=== PATIENT | female | born 1960 | race Caucasian/White ===

== ENCOUNTER → 2017-09-29 | Outpatient (CLI) | payer BC | LOC: M.NUC 09:48 | DX: C50.911 Malignant neoplasm of unspecified site of right female breast (principal); C79.51 Secondary malignant neoplasm of bone ==

== ENCOUNTER 2018-04-19 03:55 | Inpatient (IN) | payer BC ==
[~2018-04-19] VITALS: Ht 152.4 cm; Wt 61.0 kg
[2018-04-19] VITALS (39 sets, daily range): BP systolic 65–144; BP diastolic 32–80
--- NOTE | ~2018-04-19 | CON ---
[address] [address] CONSULTATION Name: CESAR ORTEGA Room: [address] IN .R.#: [id number] Admission: 04/19/18 Attend Phys: Norberto Wayne MD Discharge: Date of : 60 Report #: [id number] THIS REPORT FOR: //name// CC: Norberto Kirby DATE OF SERVICE: 04/19/2018 REASON FOR CONSULTATION: Metastatic breast cancer, respiratory failure. REQUESTING PHYSICIAN: Norberto Wayne MD HISTORY OF PRESENT ILLNESS: The patient is a pleasant 57-year-old woman with longstanding history of metastatic breast cancer, recently disease progressed rapidly and significantly. She has metastatic disease in liver, lung and bones. She was admitted to the hospital months ago with [facility] with worsening right pleural effusion and possible empyema. She was refusing IV antibiotics. Thoracic Surgery consult was requested. Pulmonary consult is requested. This was made to proceed with conservative management. This procedure was too aggressive in her condition. It was determined. She was relatively asymptomatic at that time. She was released from the hospital. She initiated chemotherapy with Abraxane. She received one month of chemotherapy. She was doing okay. Last time I saw her in the hospital, she was feeling a little bit better. She felt that her pain was getting better, although she tries to diminish her symptoms. Yesterday, she developed severe shortness of breath and was admitted to the hospital. She is intubated in the Intensive Care Unit. Oncology consult is requested. She is on Levophed and intubated to 40% oxygen O2. She is sedated. and son at bedside. PAST MEDICAL HISTORY: Significant for history of COPD, metastatic breast cancer. REVIEW OF SYSTEMS: Unable to obtain. 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 PHYSICAL EXAMINATION: GENERAL: Reveals thin woman, sedated, intubated. VITAL SIGNS: Blood pressure 101/48, heart rate 105, temperature 98.9, respirations 16. HEENT: Intubated. HEART: Normal S1, S2. LUNGS: Severe wheezing and prolonged expiration, diminished [place] [address] CONSULTATION Name: CESAR ORTEGA Room: [address]#: [id number] Admission: 04/19/18 Attend Phys: Norberto Wayne MD Discharge: Date of : 60 Report #: [id number] ABDOMEN: Soft. EXTREMITIES: No edema. LABORATORY DATA: CT of the chest reviewed, shows large right pleural fluid collection with chronic loculated pleural effusion. Empyema is felt less likely, but cannot be excluded, diffuse, has reduced sclerotic changes involving all visual ulcers, metastatic disease. White count 7.4, hemoglobin 8.2, platelets 126. Sodium 134, potassium 2.5, bilirubin 0.5, alkaline phosphatase 74. ASSESSMENT AND PLAN: Respiratory failure, probably multifactorial etiology, chronic obstructive pulmonary disease plus chronic loculated right pleural effusion, possible empyema. Agree with management. Empyema/loculated pleural effusion. Appreciate pulmonary input. Metastatic breast cancer, on Abraxane. Last Abraxane was given a week ago. By: 1523 Elise Rivera MD /nt
[2018-04-19 04:36] LABS: HEMATOCRIT 24.7 % (37.0-47.0); HEMOGLOBIN 8.2 gm/dL (12.0-15.0); MCH 27.1 pg (26.0-34.0); MCHC 33.4 g/dL (28.0-37.0); MCV 81.2 fL (80.0-100.0); MPV 7.7 fl. (7.2-11.1); NUCLEATED RBCS 4 /100WBC; PLATELET COUNT* 126 thou/uL (150-400); RBC 3.04 mil/uL (4.20-5.00); WBC 7.4 thou/uL (4.0-11.0)
[2018-04-19] MEDS ORDERED: OXYCONTIN15 MG PO (04:46)
[2018-04-19] MEDS ORDERED: ONDANSETRON ODT8 MG PO ×2 (04:46→04:52)
[2018-04-19] MEDS ORDERED: POTASSIUM20 PO (04:47)
[2018-04-19] MEDS ORDERED: SYNTHROID100 MC1 PO (04:47)
[2018-04-19 04:48] LABS: APTT 29.5 Seconds (25.0-31.3); INR 1.2; PROTIME 12.7 Seconds (9.20-11.50)
[2018-04-19] MEDS ORDERED: VITAMIN B-12500 MCG PO (04:48)
[2018-04-19] MEDS ORDERED: D-20002000 UNIT PO (04:48)
[2018-04-19] MEDS ORDERED: MAGIC MOUTHWASH SWISH&SPIT (04:48)
[2018-04-19 04:49] LABS: ANION GAP 9 mmol/L (7-16); BUN 10 mg/dL (7-18); CALCIUM 7.6 mg/dL (8.5-10.1); CHLORIDE 95 mmol/L (98-107); CO2 30 mmol/L (21-32); CREATININE 0.7 mg/dL (0.6-1.3); GLUCOSE 199 mg/dL (70-99); SODIUM 134 mmol/L (136-145)
[2018-04-19] MEDS ORDERED: NOVOLOG100 UNIT/1 SUBQ (04:50)
[2018-04-19] MEDS ORDERED: HYDROCODONE-AP1 EAC6 PO (04:50)
[2018-04-19] MEDS ORDERED: REGLAN 5 MG TAB5 MG PO (04:51)
[2018-04-19] MEDS ORDERED: MORPHINE SULFAT15 M4 PO (04:51)
[2018-04-19] MEDS ORDERED: PRILOSEC OTC20 MG PO (04:52)
[2018-04-19] MEDS ORDERED: CENTRUM SILVER1 EAC2 PO (04:52)
[2018-04-19] MEDS ORDERED: PROTONIX40 M1 PO (04:53)
[2018-04-19] MEDS ORDERED: COMPAZINE10 MG PO (04:53)
[2018-04-19] MEDS ORDERED: SIMVASTATIN40 MG PO (04:53)
[2018-04-19 04:58] LABS: POTASSIUM 2.5 mmol/L (3.5-5.1)
[2018-04-19 05:00] LABS: ALBUMIN 1.6 g/dL (3.4-5.0); ALKALINE PHOSPHATASE 74 U/L (46-116); NT-PRO BRAIN NAT PEPTIDE 862 pg/mL (<300); SGOT 38 U/L (15-37); SGPT 16 U/L (30-65); TOTAL BILIRUBIN 0.8 mg/dL (<0.1-1.0); TOTAL PROTEIN 4.8 g/dL (6.4-8.2); TROPONIN-I LEVEL <0.06 ng/mL (<0.06)
--- NOTE | 2018-04-19 06:41 | NUR ---
iv fluid blolus started per orders. iv potassium infusing for critical low potassium level. pt unable to take po meds at this time
--- NOTE | 2018-04-19 07:37 | NUR ---
0720 DR MATA TO BS.INTUBATION DISCUSSED WITH FAMILY AND PT. AGREE TO INTUBATE 0725 SUCCINYCHOLINE 100 MG ETOMIDATE 20 MG GIVEN VIA PORT 7.5 ET 24 CM AT LIP. POSITIVE COLOR CHANGE, VENT SETTINGS: R 16 TV 550 100% O2 WITH PEEP 5.TUBE SECURED WITH SECUREMENT DEVICE 0735 PROPOFOL 10/MCG/KG/MIN STARTED AT 3.4 ML/HR. WRIST RESTRAINTS APPLIED FOR LINE SAFETY 0738 TIME OUT FOR CENTRAL LINE PLACEMENT. PROPOFOL INCREASED TO 20 MCG/KG/MIN 0745 CENTRAL LINE PLACED TO RIGHT IJ BY DR MATA.
[2018-04-19 07:54] LABS: ABSOLUTE LYMPHOCYTES 2.1 thou/uL (0.8-5.3); ABSOLUTE MONOCYTES 0.4 thou/uL (0.0-1.2); ABSOLUTE NEUTROPHILS 4.9 thou/uL (1.6-8.1); MYELOCYTES 3 %; PLATELET ESTIMATE ADEQUATE
[2018-04-19 07:55] LABS: ANISOCYTOSIS 1+; POIKILOCYTOSIS 1+; POLYCHROMASIA 1+
[2018-04-19 08:53] LABS: HCO3 25.8 mmol/L (22.0-26.0); PCO2 36.4 mmHg (35.0-45.0); pH 7.469 (7.340-7.450)
[2018-04-19 08:54] LABS: PO2 347.8 mmHg (75.0-100.0)
--- NOTE | 2018-04-19 09:45 | NUR ---
PATIENT ARRIVED FROM ER AT 0945 SEDATED ON VENTILATOR. BILATERAL WRIST RESTRAINTS. SEDATED ON PROPOFOL. ON LEVOPHED AT 3 MCG/MIN. INCREASED TO 22 MCG/MIN FOR LOWER BLOOD PRESSURE WITH INCREASED SEDATION. PATIENT HAS METASTATIC BREAST CANCER WITH KNOWN LIVER, LUNG, AND BONE METS. SEES DR BURNS AT . RECORDS REQUESTED FROM AND [facility] WHERE SHE WAS IN THE PAST MONTH. PATIENT HAD SOA OVERNIGHT. HAS WORSENING EMPYEMA TO RIGHT LUNG. PREVIOUS RIGHT RADICAL MASTECTOMY NOTED. LIMB ALERT IN PLACE. FAMILY PRESENT AT THIS TIME. WILL CONTINUE WITH PLAN OF CARE.
--- NOTE | 2018-04-19 09:59 | EKG ---
[place] [address] ELECTROCARDIOGRAM REPORT Name: CESAR ORTEGA Room: [address] ADM IN .R.#: [id number] Admission: 04/19/18 Attend Phys: Norberto Wayne MD Discharge: Date of : 60 Report #: [id number] THIS REPORT FOR: //name// [facility] ED Test Date: 2018-04-19 Test Time: 04:55:16 Pat Name: CESAR LONDON Department: Room: [facility] Gender: F Vp Of Marketing: : 1960 Requested By: Ford Elder Order Number: [id number] MD: Jeronimo Campuzano Measurements Intervals [place] Rate: 130 P: 55 OR: 116 QRS: -7 QRSD: 136 T: 165 QT: 321 QTc: 472 Interpretive Statements Sinus tachycardia supraventricular premature complexes Left bundle branch block No previous ECG available for comparison Electronically Signed On 04-19-2018 9:58:59 HVAC MAINTENANCE TECHNICIAN by Jeronimo Campuzano [email or web address] <ELECTRONICALLY SIGNED> By: Jeronimo Campuzano MD, [facility] 04/19/18 0958 0455 0455 Jeronimo Campuzano MD, FACC /EPI
--- NOTE | 2018-04-19 17:36 | NUR ---
PATIENT SOMEWHAT PROGRESSING TOWARDS GOALS. REMAINS STABLE ON VENTILATOR. O2 98% ON FIO2 40%. RESPIRATIONS FROM 16-22 THIS SHIFT. SEDATED ON PROPOFOL. REMAINS ON LEVOPHED, TITRATED DOWN TO 10 MCG/MIN THIS SHIFT. HR LOWERED TO HIGH 90S LOW 100S. ART LINE PLACED BY ANESTHESIOLOGY THIS EVENING. DR BURNS SPOKE WITH FAMILY ABOUT PROGNOSIS. PATIENT REMAINS FULL CODE AT THIS TIME WITH ALL MEASURES PER . K+ CURRENTLY BEING REPLACED PER PROTOCOL. TURNED Q2H TO MAINTAIN FURTHER SKIN INTEGRITY WITH NOTED SORE TO SACRAL AREA. PATIENT'S FAMILY UPDATED THROGHOUT SHIFT, REMAIN IN AGREEMENT WITH PLAN OF CARE AND HAS VOICED NO CONCERNS AT THIS TIME.
[2018-04-20] VITALS (30 sets, daily range): BP systolic 91–125; BP diastolic 50–72
[2018-04-20 02:47] LABS: HEMOGLOBIN 7.5 gm/dL (12.0-15.0)
[2018-04-20 02:49] LABS: HEMATOCRIT 22.8 % (37.0-47.0); MCH 26.8 pg (26.0-34.0); MCV 81.3 fL (80.0-100.0); MPV 8.4 fl. (7.2-11.1); RBC 2.8 mil/uL (4.20-5.00); RDW-CV 19.4 % (10.5-14.5); WBC 14.9 thou/uL (4.0-11.0)
[2018-04-20 03:06] LABS: ALBUMIN 1.2 g/dL (3.4-5.0); CALCIUM 6.5 mg/dL (8.5-10.1); CREATININE 0.9 mg/dL (0.6-1.3); MAGNESIUM 1.2 mg/dL (1.8-2.4); POTASSIUM 3.3 mmol/L (3.5-5.1); TOTAL BILIRUBIN 0.8 mg/dL (<0.1-1.0); TOTAL PROTEIN 4.4 g/dL (6.4-8.2)
--- NOTE | 2018-04-20 06:22 | NUR ---
PT SEDATED AND REMAINS ON VENTILATOR. SETTINGS AC 16, FIO2 50%, TV 400 AND PEEP OF 5. OGT TO LIS. SILVA INTACT AND PATENT DRAINING DARK YELLOW URINE. PUBLIC HEALTH NUTRITIONIST INTACT WITH ALARMS SET.VSS AND NO ACUTE CHANGES DURING SHIFT WILL CONITUE TO MONITOR.
--- NOTE | 2018-04-20 07:53 | CON ---
[address] [address] CONSULTATION Name: CESAR ORTEGA Room: [address] IN .R.#: [id number] Admission: 04/19/18 Attend Phys: Norberto Wayne MD Discharge: Date of : 60 Report #: [id number] THIS REPORT FOR: //name// CC: Norberto Rivera MD DATE OF SERVICE: 04/19/2018 PULMONARY CONSULTATION ATTENDING PHYSICIAN: Norberto Wayne MD LOCATION: The patient is located in the ICU at [facility] bed #7. INDICATION FOR CONSULTATION: Acute hypoxic respiratory failure, metastatic breast CA. HISTORY OF PRESENT ILLNESS: The patient is a 57-year-old female, prior smoker with multiple medical problems. The patient was admitted to the hospital after being transferred by ambulance and hypoxic by EMS. She was seen in the Emergency Room and fairly emergently intubated because of hypoxemia and inability to tolerate CPAP. The patient's history, she has been more short of breath for the last month or 2. She has had a known right chronic pleural effusion with thoracentesis in the past. She has what appears to be a loculated effusion with 3 pockets in there, also has right lung hilar adenopathy and also right lung atelectasis. The patient has been more short of breath when the ambulance arrived there. When she got up and ambulated early this morning to the bathroom, her sats were in the 60% range. Again, they tried 100% mask, got up in the 75-80% range. She is still hypoxic again, did not tolerate CPAP and then was intubated. The patient has been at [facility]. She has had radiation therapy to her right lung. She has been on the rounds of chemotherapy for metastatic breast CA since she has had this since 2013. She has had some cough, chronic shortness of breath. She has also had fever, but denies any chills or sweats. PAST MEDICAL HISTORY: She has had a history of COPD. She has had metastatic breast cancer, questionably to her lung and to her right pleural space, either that or it is infected pleural fluid and then, she is also added to her liver and to her bones, which is worse. It has been refractory to chemo and radiation therapy, stage IV, also has a history of COPD and history of respiratory failure. ALLERGIES: SHE HAS ALLERGIES OR INTOLERANCES TO ACETAMINOPHEN FROM [facility] [place] [place] [address] CONSULTATION Name: CESAR ORTEGA Room: [address] IN [facility]#: [id number] Admission: 04/19/18 Attend Phys: Norberto Wayne MD Discharge: Date of : 60 Report #: [id number] OXYCODONE FROM [facility], I THINK THEY GAVE HER NAUSEA, ALSO OXYCODONE. MEDICATIONS: At home included potassium chloride 20 mEq daily, levothyroxine 100 mcg daily, hydrocodone just p.r.n., metoclopramide 5 mg q.i.d., Protonix 40 mg daily, pantoprazole, simvastatin 40 mg daily, morphine sulfate 15 mg tablets q. 4 hours p.r.n., sliding scale insulin. In the hospital, she is on IV vancomycin and Zosyn. She has been on IV steroids for sepsis protocol and IV fluids. She is also on Levophed at 20 mcg. OTHER PAST MEDICAL HISTORY: Metastatic breast cancer to liver and bone, insulin-dependent diabetes, chronic pleural effusion on the right, history of radiation lung damage on the right also. SOCIAL HISTORY: She lives with her . He is durable power of energy attorney and is quite accurate and helpful on the history. She is a former smoker of 1 pack a day. She has 15- to 16-aalc-coel history. Supposedly, quit greater than a year ago. Denies any alcohol or illicit drug use. FAMILY HISTORY: Negative for breast cancer. Negative for premature cardiopulmonary disease. REVIEW OF SYSTEMS: A 14-point review of systems otherwise reviewed and negative except for pertinent positives noted in HPI. PHYSICAL EXAMINATION: GENERAL: An ill-appearing 57-year-old female who appears older than her stated age. VITAL SIGNS: Her blood pressure is 100/70 on Levophed, heart rate 100, respirations were 18 over backup rate of 18 and temperature was 38 degrees upon admission early this morning, it is 37.8 tonight. She is 5 feet 2 inches tall, weight is 61 kilograms or 133 pounds. BMI is 26. HEENT: Pupils are midpoint, sluggishly reactive. She is orally intubated, has an OG tube in place. NECK: No increase in jugular venous pressure. Neck veins are flat. BREASTS: She has had a right mastectomy. Has some skin changes and radiation changes to her right chest wall. CHEST: Shows markedly diminished breath sounds on the right with few rhonchi and crackles and the left lung shows rhonchi and crackles on the left. CARDIOVASCULAR: Sinus tachycardia without murmur, gallop or rub. Heart rate is 104. ABDOMEN: Soft with liver being enlarged and somewhat nodular. Spleen is not enlarged. Abdomen otherwise soft. EXTREMITIES: No cyanosis, clubbing or edema. NEUROLOGIC: She is sedated, not moving at least at this time. LABORATORY DATA: From earlier today, 04/19/2018, hemoglobin is 8.2, white count [facility] [address] [place] [address] CONSULTATION Name: CESAR ORTEGA Room: [address] IN ..#: [id number] Admission: 04/19/18 Attend Phys: Norberto Wayne MD Discharge: Date of : 60 Report #: [id number] is 7200 with left shift, differential with 22% bands and platelet counts 126,000. Chemistry: Sodium is 134 with potassium of 2.5, being repleted; chloride is 95, carbon dioxide is 30, BUN is 10, creatinine 0.7, glucose is 199 and AST was slightly elevated. ALT was low. Anti-proBNP was 862 and albumin is low at 1.6. ABGs on 100% and 450, assist control of 16 and PEEP of 5 today showed a pO2 of 347, pH is 7.46, pCO2 is 34, bicarbonate is 26 and a sat of 98%. ET tube was a little low on chest x-ray and CT scan. She has what appears to be right lung atelectasis on CT angiogram. She had no pulmonary emboli, but loculated pleural effusions, 3-4 in different areas and also air fluid level appears to be in the right upper lobe pleural effusion. It is either empyema or early bronchopleural fistula or parapneumonic effusion. She did have one cytology from August [address] Kirk ordered. There was about 15 mL of fluid and it was negative for malignancy. Again, that was in August 2013 since she was first diagnosed with breast cancer. IMPRESSION: 1. Acute hypoxic respiratory failure. 2. Complicated right pleural effusion, possibly infected pleural space, could be related to metastatic breast cancer or chronic infections and postobstructive pneumonia. 3. Metastatic breast cancer to liver and bone, refractory to chemotherapy and radiation therapy. 4. Volume depletion and sepsis syndrome. 5. Radiation lung injury on the right. PLAN: Admit to the ICU, keep on sepsis protocol. Her airway pressures became isolated, dropped her tidal volume, dropped her PEEP from 5 to 3. There is no change in her chest x-ray, there is no pneumothorax, right or left. Secretions have been minimal at this time. May benefit from a bronchoscopy to see if she has endobronchial disease and maybe get some cultures and specimens at some point in time. We will follow up chest x-rays and ABGs. I discussed the patient's poor prognosis with her . He states the patient wishes full aggressive therapy. Right now, she is a full code blue with extremely guarded prognosis. As we try and treat her infection or breast cancer, will get worse. If we try and treat her breast cancer with radiation and chemotherapy, I feel her infection will get worse. Anyway, no good options exist at least at this time. is aware of that. We may consider right-sided chest tube by general surgery to see if we can decompress the pleural effusion and see if we get some of the liquid effusion to resorb and resolve and see if the right lung would reexpand. She has already seen a thoracic surgeon, I believe over at [facility] who did not wish to do surgery and also seen interventional radiology with the same results. Prognosis again is guarded because of all the above and her multiple comorbidities. [address] [address] CONSULTATION Name: CESAR ORTEGA Room: [address] IN [facility].#: [id number] Admission: 04/19/18 Attend Phys: Norberto Wayne MD Discharge: Date of : 60 Report #: [id number] I spent 34 minutes of critical care consult. <ELECTRONICALLY SIGNED> By: Adal Wilder MD 04/20/18 0753 [id number] Wilder MD /nt
--- NOTE | 2018-04-20 09:10 | NUR ---
PER AM XRAY, PATIENT ET TUBE IN TOO FAR. DR MENENDEZ NOTIFIED. HE READ XRAY AND ORDERED TO PULL BACK ET TUBE 2CM. RT NOTIFIED WHO PULLED ET TUBE BACK TO 21 CM AT THE LIP WITH NO ACUTE PROBLEM.
--- NOTE | 2018-04-20 10:15 | NUR ---
INTERDISICPLINARY ROUNDS: MET WITH PT'S SPOUSE/DARNELL. PT REMAINS ON VENT. PER DARNELL, SHE HAS BEEN GETTING [facility]MO [facility] [place]. 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 SHE USES NO EQUIPMENT AND HAS BEEN DOING FAIRLY WELL. PLAN IS FOR POSSIBLE BRONCH ON MONDAY. SUPPORT PROVIDED. WILL FOLLOW
--- NOTE | 2018-04-20 11:13 | CON ---
[address] [address] CONSULTATION Name: CESAR ORTEGA Room: [address] IN .R.#: [id number] Admission: 04/19/18 Attend Phys: Norberto Wayne MD Discharge: Date of : 60 Report #: [id number] THIS REPORT FOR: //name// CC: Norberto Kirby DATE OF SERVICE: 04/20/2018 INFECTIOUS DISEASE CONSULTATION ATTENDING PHYSICIAN: Norberto Wayne MD REASON FOR EVALUATION: Septic shock, respiratory failure, complication of multifactorial issues including likely pneumonitis as well as empyema and suspected metastatic cancer with postobstructive process. HISTORY OF PRESENT ILLNESS: Chart reviewed. Patient examined. The patient is a 57-year-old with extensive medical history given her age. She does have known widely metastatic breast cancer. She has been treated fairly recently with chemotherapy and radiation, had a recent liver biopsy as well for questionable metastatic disease, presented in extremis, was admitted to the Intensive Care Unit, was emergently intubated. Imaging studies suggest significant right-sided pathology including loculated right pleural effusion, entire right lung was atelectatic and replaced by tumor, worsened since December 2015. She does have extensive right hilar adenopathy as well. History is obtained via chart as well as the family. At this point, she is sedated on mechanical ventilatory support. She has been started on broad spectrum antimicrobials with vancomycin and piperacillin and tazobactam. She is being evaluated by Pulmonary, considering bronchoscopy. In addition to that, she is on pressor support due to hemodynamic instability. Lactic acid was borderline elevated at 2.0. ALLERGIES: LISTED OXYCODONE. MEDICATIONS: Include norepinephrine, vancomycin, enoxaparin, albuterol, methylprednisolone, propofol, Zosyn, sliding scale insulin, levothyroxine, pantoprazole. PAST MEDICAL HISTORY: As noted above, widely metastatic breast cancer, this is a recurrence, diabetes mellitus type 2, insulin requiring; hypothyroidism. SOCIAL HISTORY: Former smoker. No ethanol or illicit drug use. FAMILY HISTORY: Noncontributory. REVIEW OF SYSTEMS: Not obtainable due [place] [address] CONSULTATION Name: ADRIAN LONDONCESAR Room: [address]#: [id number] Admission: 04/19/18 Attend Phys: Norberto Wayne MD Discharge: Date of : 60 Report #: [id number] PHYSICAL EXAMINATION: GENERAL: She appears chronically ill. She is intubated. ET tube in place, NG in place. She is in supine position, in mild to moderate distress, appears undernourished. VITAL SIGNS: Temperature 98.7, pulse 103, respirations 21, blood pressure 102/62. SKIN: Warm, dry. I do not appreciate any rashes. HEENT: As noted above. NECK: Appears to be supple. LUNGS: Diminished breath sounds on the right, coarseness. HEART: Tachycardic, appears to be regular. I do not appreciate murmur. ABDOMEN: Overall, soft. There are no peritoneal signs. EXTREMITIES: Distal lower extremities, there is no cyanosis or edema. GENITOURINARY: Deferred. RECTAL: Deferred. LABORATORY DATA: Blood culture sterile thus far. Lactic acid 2.0. Initial studies: PT 12.7, INR of 1.2. Electrolytes: Sodium 134, potassium 2.5, chloride 95, bicarbonate is 30, anion gap of 9, BUN and creatinine 10 and 0.7, glucose of 199, albumin of 1.6. Total protein 4.8, estimated GFR 48. CTA, chest PE protocol as described above. No evidence of PE, multiple liver metastases, moderate gas and loculated right pleural effusion with collapse, extensive adenopathy. CBC: White count of 7.4, H and H 8.2 and 24.7, platelets of 126. Echo of the right thorax showed no drainable pleural space fluid identified. ASSESSMENT: Pneumonitis and suspected empyema in the setting of metastatic breast cancer, now with respiratory failure requiring mechanical ventilatory support. It is reasonable to continue empiric broad spectrum antimicrobial therapy at this point. Discussed with Dr. Wilder. He is considering bronchoscopy certainly in favor of having a culture material. Whether this will change the outcome reversibility is not certain. She will be at high risk for any intervention at this point, I believe. Discussed in detail with the family. We will see how she does clinically over the course of the next 48-72 hours. We will adjust therapy as needed either due to clinical course and/or results based on testing. <ELECTRONICALLY SIGNED> By: Mike Gant MD 04/20/18 1113 0925 [id number] Gant MD /nt
--- NOTE | 2018-04-20 11:46 | NUR ---
WOUND NURSE: PATIENT SEEN FOR ASSESSMENT OF COCCYGEAL SKIN LESION. PRESENTS WITH PARTIAL THICKNESS TISSUE LOSS, LIGHT YELLOWISH NONGRANULATING TISSUE IN THE WOUND BED, PINK EDGES, SMALL AMOUNT OF SEROUS DRAINAGE. THERE IS 2 WOUND OPENINGS WITHING 1.5 X 1.5 X 0.2 CM MEASUREMENT AND 50% IS SKIN. CLEANSED WITH SOAP AND WATER, RINSED WITH WATER, THEN PATTED DRY. APPLIED SKIN PREP TO INTACT PERIWOUND TISSUE, THEN APPLIED AQUACEL AG UNDER EXUDERM TO WOUND AND SECURED WITH TRANSPARENT DRESSING. PATIENT IS SEDATED AND NONTEACHEABLE.
--- NOTE | 2018-04-20 18:41 | NUR ---
PATIENT REMAINED STABLE ON VENTILATOR TODAY. PROPOFOL FOR SEDATION. LEVOPHED TITRATED TO 2 MCG/MIN. ART LINE TO LEFT RADIAL REMAINS IN PLACE. RIGHT LIMB ALERT. COMPRESSION SLEEVE REMAINS ON FOR LYMPHEDEMA. LOW GRADE FEVERS NOTED OFF AND ON THIS SHIFT. Q2 TURNS MAINTAINED FROM SIDE TO SIDE ONLY TO MAINTAIN FURTHER SKIN INTEGRITY. WOUND CONSULT TODAY, GAVE DRESSING ORDERS. SEE DOCUMENTATION. FAMILY PRESENT THROUGOUT DAY. DENIES FURTHER ACUTE NEEDS. STATES HE IS GOING HOME TO SLEEP TONIGHT.
[2018-04-21] VITALS (24 sets, daily range): BP systolic 91–144; BP diastolic 43–76
[2018-04-21 05:01] LABS: HEMATOCRIT 22.2 % (37.0-47.0); HEMOGLOBIN 7.4 gm/dL (12.0-15.0); MCH 27.2 pg (26.0-34.0); MCHC 33.3 g/dL (28.0-37.0); MCV 81.5 fL (80.0-100.0); MPV 8.5 fl. (7.2-11.1); RBC 2.73 mil/uL (4.20-5.00); RDW-CV 19.8 % (10.5-14.5); WBC 12.7 thou/uL (4.0-11.0)
--- NOTE | 2018-04-21 05:07 | NUR ---
CARE ASSUMMED AND REPORT RECIEVED FROM OFF GOING SHIFT. VENTILATOR INTACT WITH SETTINGS OF FIO2 40%M TV 400 PEEP 3 AND AC 16. MANAGER MARITIME INTACT WITH ALARMS SET. SILVA INTACT AND PATENT DRAINING YELLOW URINE. VSS. APPROXIMATELY 2200 AFTER TURNING PATIENT TO RIGHT SIDE SHE NOTED TO HAVE DECREASED SATS IN THE 80S. SUCTIONED PATIENTS AIRWAY AND MOUTH. NEW P OX PROBE APPLIED AND SATS NOTED TO BE STAYING LOW. FIO2 INCREASED TO 60% TO GET SATS TO RETURN TO NORMAL LIMITS. WILL CONTINUE TO MONITOR
[2018-04-21 05:08] LABS: BE -5.1 mmol/L (-2 to +3); HCO3 18.5 mmol/L (22.0-26.0); PCO2 28.8 mmHg (35.0-45.0); PO2 66.5 mmHg (75.0-100.0); pH 7.425 (7.340-7.450)
[2018-04-21 05:25] LABS: CREATININE 0.8 mg/dL (0.6-1.3); MAGNESIUM 1.3 mg/dL (1.8-2.4); POTASSIUM 4.1 mmol/L (3.5-5.1)
[2018-04-21 05:50] LABS: CALCIUM 5.9 mg/dL (8.5-10.1)
--- NOTE | 2018-04-21 10:31 | NUR ---
BRONCHOSCOPY DONE AND BRONCH WASH SENT TO LAB FOR CULTURE AND CYTOLOGY. ADDED SEDATION AND INCREASED ORDERED. LEVOPHED REMAINS AT HIGH DOSES AT THIS TIME TO HELP SUPPORT INCREASE OF SEDATION. PATIENT TOLERATED BRONCHOSCOPY WELL. FAMILY UPDATED, AT BEDSIDE AT THIS TIME.
--- NOTE | 2018-04-21 12:28 | NUR ---
Received order to assist with transfer to [facility] for cardiothoracic surgeon. Pt is currently in the ICU on a ventilator and was diagnosed with empyema. Called [facility] transfer team ([phone]) and spoke with Eric. Faxed requested records, including face sheet, H&P and progress notes, consults, radiology reports, lab results and vital signs. Gave Dr Wayne's phone number to transfer team for their physician to call for additional clinical information if needed. Eric said that pt's family had called [facility] at 0530 on 04/19 prior to admission to [facility] requesting transfer to [facility]. Pt was admitted to [facility] and request to transfer was cancelled. Will await return call re: bed availability and acceptance.
--- NOTE | 2018-04-21 14:21 | NUR ---
PATIENT IS BEING LIFE FLIGHTED TO TO [facility]. FAMILY NOTIFIED AND CONSENTED TO TRANFER.
--- NOTE | 2018-04-21 16:51 | NUR ---
PATIENT WAS LIFE FLIGHTED TO AT 1515. REPORT CALLED TO SHAMAR AT 1510. ALL QUESTIONS ANSWERED. FAMILY PRESENT AT TIME OF TRANSFER, ALL BELONGINGS WERE SENT HOME WITH . PATIENT VERY UNSTABLE AT TIME OF TRANSFER, WHILE MOVING OVER TO [facility] FOR LIFE FLIGHT, PATIENT WAS UNABLE TO MAINTAIN SATS ABOVE 82%. TRANSFER TEAM AT WAS CALLED AND NOTIFIED OF LIGHT FLIGHT LEAVING WITH PATIENT TO HEAD THEIR WAY. TUBE FEEDING D/C BEFORE TRANSFER ALONG WITH [facility]. ART LINE, OG, SILVA AND VENT IN PLACE AT TIME OF TRANSFER.
--- NOTE | 2018-04-23 08:09 | OP ---
[address] [address] OPERATIVE REPORT Name: CESAR ORTEGA Room: [address] IN M.R.#: [id number] Admission: 04/19/18 Attend Phys: Norberto Wayne MD Discharge: 04/21/18 Date of : 60 Report #: [id number] THIS REPORT FOR: //name// CC: Norberto Kirby DATE OF SERVICE: 04/21/2018 REASON FOR EVALUATION: Respiratory failure. PROCEDURE: Bronchoscopy. INDICATION FOR PROCEDURE: Severe respiratory distress. The patient's airway pressure in the 40s, not improving with ventilator changes or sedation. PREOPERATIVE DIAGNOSES: 1. Evaluate for endobronchial obstruction. 2. Evaluate for mucus plugging. DESCRIPTION OF PROCEDURE: After obtaining consent from the , bronchoscope was advanced through the ET tube to the level of the kelly. Kelly was sharp. There were secretions in the right mainstem, right lower lobe secretion was slightly thick. Multiple washings were done from the right lower lobe and right middle lobe. Sample obtained. Left side looked normal, left mainstem, left upper lobe and left lower lobe. There were no endobronchial masses, lesions or tumor identified. Mild compression in the right upper lobe bronchus, however, no endobronchial lesions. POSTOPERATIVE DIAGNOSES: 1. Secretions in the right lower lobe. 2. Samples obtained, will be sent for culture. Recommend also sent for cytology. <ELECTRONICALLY SIGNED> By: Adal Wilder MD 04/23/18 [id number] Los Orellana MD /nt
== END 2018-04-21 15:15 | disposition short-term general hospital (02) | DRG 871 ==
LOC: M.ERS 03:55 → M.TBA-ER 08:14 → M.ICU 08:14
PROVIDERS: Emergency Medicine Emergency Medical Services; Family Medicine; Internal Medicine Pulmonary Disease; ADMIT Internal Medicine
PROC: 5A1945Z Respiratory Ventilation, 24-96 Consecutive Hours (ICD-10-PCS; principal; 2018-04-19)
PROC: 0BH17EZ Insertion of Endotracheal Airway into Trachea, Via Natural or Artificial Opening (ICD-10-PCS; principal; 2018-04-19)
PROC: 0BC58ZZ Extirpation of Matter from Right Middle Lobe Bronchus, Via Natural or Artificial Opening Endoscopic (ICD-10-PCS; 2018-04-21)
PROC: 0BC68ZZ Extirpation of Matter from Right Lower Lobe Bronchus, Via Natural or Artificial Opening Endoscopic (ICD-10-PCS; 2018-04-21)
DX: A41.9 Sepsis, unspecified organism (principal); J96.01 Acute respiratory failure with hypoxia; J18.9 Pneumonia, unspecified organism; J90 Pleural effusion, not elsewhere classified; C78.7 Secondary malignant neoplasm of liver and intrahepatic bile duct; C79.51 Secondary malignant neoplasm of bone; S27.301A Unspecified injury of lung, unilateral, initial encounter; J44.0 Chronic obstructive pulmonary disease with (acute) lower respiratory infection; T17.590A Other foreign object in bronchus causing asphyxiation, initial encounter; E87.6 Hypokalemia; D64.9 Anemia, unspecified; C50.919 Malignant neoplasm of unspecified site of unspecified female breast; E86.9 Volume depletion, unspecified; J98.4 Other disorders of lung; I95.2 Hypotension due to drugs; E03.9 Hypothyroidism, unspecified; K22.2 Esophageal obstruction; X58.XXXA Exposure to other specified factors, initial encounter; Z88.6 Allergy status to analgesic agent; Z88.8 Allergy status to other drugs, medicaments and biological substances; Z87.891 Personal history of nicotine dependence; Y93.89 Activity, other specified; Y92.89 Other specified places as the place of occurrence of the external cause; Y99.8 Other external cause status; Z90.11 Acquired absence of right breast and nipple; Z90.49 Acquired absence of other specified parts of digestive tract